=== PATIENT | male | born 1960 | race Caucasian/White ===

== ENCOUNTER → 2016-09-27 | Outpatient (CLI) | payer MEDICARE ==
[~2016-09-27] MED LIST: ARGI1POW4 PO; ARIP5TAB5 PO; ASCO500T7 PO; ASP81CT PO; BISA10SU6 RC; CARV12.5 PO; CEPH-507 PO; CHOL10002 PO; CLOP75TA3 PO; DOCU100C8 PO; FURO-125 PO; GBPN300C PO; HYDR-3702 PO; ISOS40TA10 PO; LEVO100T7 PO; LSRT50T PO; MULT-178 PO; POLY17PO2 PO; POTA20TA15 PO; RANI300T6 PO; SULF-221 PO; TAMS-8 PO; THIA100T12 PO; TRAM100T26 PO
--- NOTE | 2016-09-27 12:48 | Diagnostic Imaging Report ---
PROCEDURE: US Bilateral lower extremity arterial. TECHNIQUE: Multiple real-time grayscale images are obtained through both lower extremity arterial systems with color Doppler imaging and color Doppler spectral analysis. INDICATION: Left foot and lower leg ulcer. Peripheral vascular disease. COMPARISONS: None available. FINDINGS: Right leg: Right common femoral artery is patent with abnormal monophasic waveforms. There are multifocal nonocclusive atherosclerotic plaques within the common femoral artery. No elevated velocities in the common femoral artery to indicate hemodynamically significant stenosis. Proximal aspect of the deep femoral artery remains patent. There is a large burden of calcified atherosclerotic plaque within the proximal SFA with absent flow visualized within proximal and mid right SFA. There appears to be reconstitution of flow in the distal SFA which has abnormal low velocity and monophasic waveforms. Dense atherosclerotic plaquing of the popliteal artery without associated elevated velocities. This plaquing in the popliteal artery results in at least 50% narrowing. Evaluation of the arteries below the leg was not possible due to patient discomfort. Left leg: Left common femoral artery is patent with multifocal calcified atherosclerotic plaque which results in less than 50% luminal narrowing. There are abnormal monophasic waveforms within the common femoral artery and superficial femoral artery on the left. Proximal deep femoral artery is patent with monophasic waveform and no elevated velocity. Large focus of calcified atherosclerotic plaque at the origin of the left SFA likely results in at least 50% luminal narrowing. No associated elevated velocities to indicate hemodynamically significant stenosis. However, in the [id number] SFA, there is minimal to no significant flow indicative of occlusion or severe stenosis. Minimal flow is present within the left popliteal artery. The left common iliac artery is patent. IMPRESSION: 1. Severe atherosclerotic disease in both lower extremities. There is occlusion and/or severe high-grade stenosis in both proximal superficial femoral arteries. Recommend CTA runoff of the lower extremities for better evaluation. 2. Technologist was unable to evaluate the [id number] vessels on either side due to patient discomfort. Findings of severe and/or complete occlusion of the superficial femoral arteries was communicated by Dr. Adame to Dr. Ramos at 10:25 a.m. on 09/27/2016. He reported the patient already has a vascular surgery consultation set up. Dictated by: Dictated on workstation # [id number]
== END ==
LOC: RAD 07:44
PROVIDERS: ATTEND Family Medicine
DX: I74.5 Embolism and thrombosis of iliac artery (principal); I74.3 Embolism and thrombosis of arteries of the lower extremities
CPT/HCPCS: 93925

== ENCOUNTER 2016-11-04 08:41 | Emergency (ER) | payer MEDICARE ==
[~2016-11-04] VITALS: Ht 167.6 cm; Wt 66.3 kg
[2016-11-04 08:41] VITALS: BP 116/71
[2016-11-04] MEDS ORDERED: ALBUTEROL 0.083% NEB SOLUTION 2.5 MG/3 ML VIAL INH ONE (09:00)
[2016-11-04 09:46] LABS: BILIRUBIN,URINE Negative (Negative); CLARITY,URINE Clear; COLOR,URINE Yellow; GLUCOSE, URINE (UA) Negative (Negative); LEUKOCYTE ESTERASE ,URINE Negative (Negative); UROBILINOGEN,URINE 0.2 mg/dL (0.2-1.0)
[2016-11-04 09:48] LABS: MEAN CORPUSCULAR HEMOGLOBIN 30.6 PG (26.0-34.0); MEAN CORPUSCULAR HGB CONC 33.4 g/dL (31.0-37.0); MEAN CORPUSCULAR VOLUME 91 FL (80-100); MEAN PLATELET VOLUME 9.2 FL (6.0-9.5); PLATELET COUNT 188 10^3uL (150-450); WHITE BLOOD COUNT 11.93 10^3uL (4.0-11.0)
[2016-11-04 10:25] LABS: ALBUMIN 3.7 g/dL (3.4-5.0); ANION GAP 17.1 MEQ/L (3-15); CALCULATED IONIZED CALCIUM 3.6 mg/dL (3.8-4.6); TOTAL PROTEIN 7.6 g/dL (6.4-8.5)
[2016-11-04 11:04] LABS: ANISOCYTOSIS MODERATE; BAND NEUTROPHILS % 4 % (0-6); EOSINOPHILS % 8 % (0-4); LYMPHOCYTES # 0.2 #; MONOCYTES # 0.6 #; MONOCYTES % 5 % (3-11); POLYCHROMASIA SLIGHT; RBC MORPH SEE REFERENCE (NORMAL); SEGMENTED NEUTROPHILS % 81 % (51-67); TOTAL CELLS COUNTED 100
[2016-11-04 11:07] LABS: RBC,URINE 0-2 /HPF; URINE CENTRIFUGED VOLUME 10 mL
--- NOTE | 2016-11-04 11:10 | NUR ---
PO FLUIDS PROVIDED PER DR ADAMS
--- NOTE | 2016-11-04 11:58 | NUR ---
Dr. Rudd consults with Dr. Seamus Lozada at [facility] regarding possible transfer.
[2016-11-04] MEDS ORDERED: VANCOMYCIN 1,000 MG in SODIUM CHLORIDE 250 ML IV ONE (12:05)
[2016-11-04] MEDS ORDERED: FUROSEMIDE 40 MG/4 ML (LASIX) VIAL IV ONE (12:05)
--- NOTE | 2016-11-04 13:01 | NUR ---
pt keeps taking monitor off
--- NOTE | 2016-11-04 13:23 | NUR ---
pt wets bed and clothes after given lasix, pt was given a urinal, but did not use it, pt changed and placed in paper gown for transfer
== END 2016-11-04 13:35 | disposition short-term general hospital (02) ==
LOC: EDUNIT# 08:41 → ED 08:42
DX: I26.99 Other pulmonary embolism without acute cor pulmonale (principal); J44.9 Chronic obstructive pulmonary disease, unspecified; F17.210 Nicotine dependence, cigarettes, uncomplicated; I50.9 Heart failure, unspecified; A49.02 Methicillin resistant Staphylococcus aureus infection, unspecified site; I44.7 Left bundle-branch block, unspecified
CPT/HCPCS: 36415; 71010; 80053; 81003; 81015; 82550; 82553; 83605; 83880; 84443; 84484; 85025; 85379; 85610; 86140; 87040; 87486; 87581; 87633; 87798; 93005; 94640; 96361; 96365; 96375; 99285; J1940; J3370; J7030; J7050; J7613; 93010

== ENCOUNTER → 2016-11-04 | Outpatient (CLI) | payer MEDICARE | LOC: EMS 08:40 | PROVIDERS: ATTEND Family Medicine | DX: I50.9 Heart failure, unspecified (principal); I21.3 ST elevation (STEMI) myocardial infarction of unspecified site; B95.62 Methicillin resistant Staphylococcus aureus infection as the cause of diseases classified elsewhere; R09.02 Hypoxemia ==

== ENCOUNTER 2017-01-11 12:05 | Emergency (ER) | payer MEDICARE, MEDICAID ==
[~2017-01-11] VITALS: Ht 167.6 cm; Wt 76.4 kg
--- NOTE | 2017-01-11 12:36 | NUR ---
PT GIVEN URINAL TO VOID. DR TREVINO NOTIFIED PT URINE OBTAINED. CL
[2017-01-11] MEDS ORDERED: SODIUM CHLORIDE FLUSH 10 ML SYR IV PRN (12:55)
[2017-01-11] MEDS ORDERED: SODIUM CHLORIDE FLUSH 3 ML SYR IV PRN (12:55)
[2017-01-11 13:03] LABS: BASOPHILS % (AUTO) 1 % (0-2); EOSINOPHILS # (AUTO) 0.4 10^3uL; EOSINOPHILS % (AUTO) 4 % (0-4); LYMPHOCYTES # (AUTO) 1.8 X10^3; MEAN CORPUSCULAR HEMOGLOBIN 30.8 PG (26.0-34.0); MEAN CORPUSCULAR HGB CONC 33.5 g/dL (31.0-37.0); MEAN CORPUSCULAR VOLUME 92 FL (80-100); MEAN PLATELET VOLUME 10.4 FL (6.0-9.5); MONOCYTES # (AUTO) 1.4 X10^3; MONOCYTES % (AUTO) 15 % (3-11); NEUTROPHILS # (AUTO) 5.3 X10^3; NEUTROPHILS % (AUTO) 59 % (51-67); PLATELET COUNT 181 10^3uL (150-450); WHITE BLOOD COUNT 9.01 10^3uL (4.0-11.0)
[2017-01-11 13:14] LABS: ALBUMIN 4.2 g/dL (3.4-5.0); ANION GAP 19.3 MEQ/L (3-15); TOTAL PROTEIN 7.4 g/dL (6.4-8.5)
--- NOTE | 2017-01-11 13:22 | Diagnostic Imaging Report ---
INDICATION: Shortness of breath. COMPARISON: 11/04/2016. FINDINGS: The lungs are well aerated and clear. Heart is not enlarged. Pulmonary vasculature is normal. No pneumothorax or pleural effusion. IMPRESSION: Normal portable chest. Dictated by: Dictated on workstation # [id number]
--- NOTE | 2017-01-11 13:51 | NUR ---
PT USING URINAL WHILE [facility] FACILITY STAFF AWAIT TO TAKE PT HOME. THEIR STAFF ALSO TAKING A 2ND PT BACK TO FACILITY FROM THE ED ALSO SO THEY WILL WAIT IN THE LOBBY WHILE PT URINATES, IV DCD ETC. CL
[2017-01-11 15:20] VITALS: BP 122/67
== END 2017-01-11 14:13 | disposition home or self-care (01) ==
LOC: EDUNIT# 12:05 → ED 12:06
DX: R06.02 Shortness of breath (principal)
CPT/HCPCS: 36415; 71010; 80053; 84484; 85025; 93005; 93010; 99284; 99285

== ENCOUNTER → 2017-02-15 | Outpatient (CLI) | payer MEDICARE, MEDICAID ==
[2017-02-15 11:54] LABS: BASOPHILS % (AUTO) 1 % (0-2); EOSINOPHILS # (AUTO) 0.5 10^3uL; EOSINOPHILS % (AUTO) 5 % (0-4); LYMPHOCYTES # (AUTO) 2.6 X10^3; MEAN CORPUSCULAR HGB CONC 34.1 g/dL (31.0-37.0); MEAN CORPUSCULAR VOLUME 93 FL (80-100); MEAN PLATELET VOLUME 9.9 FL (6.0-9.5); MONOCYTES # (AUTO) 1.6 X10^3; MONOCYTES % (AUTO) 15 % (3-11); NEUTROPHILS # (AUTO) 5.9 X10^3; NEUTROPHILS % (AUTO) 55 % (51-67); PLATELET COUNT 169 10^3uL (150-450); WHITE BLOOD COUNT 10.83 10^3uL (4.0-11.0)
[2017-02-15 12:03] LABS: MEAN CORPUSCULAR HEMOGLOBIN 31.5 PG (26.0-34.0)
[2017-02-15 12:06] LABS: ALBUMIN 4.5 g/dL (3.4-5.0); ANION GAP 16.9 MEQ/L (3-15); CALCULATED IONIZED CALCIUM 3.7 mg/dL (3.8-4.6); TOTAL PROTEIN 8.2 g/dL (6.4-8.5)
--- NOTE | 2017-02-15 13:01 | Diagnostic Imaging Report ---
INDICATION: Congestive failure. Checkup. COMPARISON: 01/11/2017. FINDINGS: Two views of the chest are obtained. Heart size is normal. The pulmonary vessels appear unremarkable. There is no pneumothorax, mediastinal widening or pleural fluid suspected. There are chronic findings of COPD. There is some scarring at the lung bases which appears similar the prior study. No new focal pneumonia is suspected. The osseous structures appear unremarkable. IMPRESSION: Chronic findings of COPD and basilar scarring. No new or acute abnormality is seen when compared to the prior study. Dictated by: Dictated on workstation # [id number]
== END ==
LOC: LAB 11:08
PROVIDERS: ATTEND Family Medicine
DX: I50.22 Chronic systolic (congestive) heart failure (principal); R79.89 Other specified abnormal findings of blood chemistry; D50.8 Other iron deficiency anemias; E83.42 Hypomagnesemia; E13.65 Other specified diabetes mellitus with hyperglycemia; J44.9 Chronic obstructive pulmonary disease, unspecified
CPT/HCPCS: 36415; 71020; 80053; 83036; 83735; 83880; 85025